=== PATIENT | female | born 1960 | race Caucasian/White ===

== ENCOUNTER → 2017-08-09 | Outpatient (CLI) | payer OTHER ==
--- NOTE | ~2017-08-09 | PFR/MVV ---
[facility] [place] [address] PULMONARY FUNCTION MVV/REPORT Name: JACERAUL Room #: REG SHEYLA Watt#: [id number] Admission: 08/09/17 Attend Phys: Lucio Caban MD Discharge: Date of : 64 Report #: [id number] THIS REPORT FOR: //name// COPIES FOR: AGE: 56 SEX/RACE: F/C >> SPIROMETRY: (BTPS) Height: 66.0 in cm Weight: 138 lbs kg Exam Date: 08/09/17 PRE-RX POST-RX PRED BEST %PRED BEST %PRED %CHG FVC LITERS . 3.35 . 2.83 . 84 . 2.73 . 82 . -3 FEV1 LITERS . 2.73 . 2.11 . 77 . 2.16 . 79 . 2 FEV1/FVC % . 83 . 75 . 90 . 79 . 95 . 6 DYR38-53% L/Sec . 2.97 . 1.58 . 53 . 2.17 . 73 . 38 PEF L/SEC . 6.13 . 6.31 . 103 . 6.47 . 106 . 3 FEF50/FIF50 UNITLESS . <1.00 . 0.80 . . 1.59 . . 99 MVV L/Min . 96 . 67 . 69 f 1/Min . . 130 . >> LUNG VOLUMES: (BTPS) PRE-RX POST-RX PRED AVG %PRED AVG %PRED %CHG VC Liters . 3.35 . 2.84 . 85 . . . TLC Liters . 5.34 . 4.89 . 91 . . . RV Liters . 1.95 . 2.05 . 105 . . . RV/TLC % . 36 . 42 . 116 . . . FRC PL Liters . 3.11 . 3.07 . 99 . . . FRC N2 Liters . 3.11 . . . . . ERV Liters . . 1.02 . . . . IC Liters . . 1.77 . . . . >> DIFFUSION: DLCO ml/Min/mmHg . 20.7 . 14.3 . 69 . . . DL Deidra ml/Min/mmHg . 20.7 . 14.3 . 69 . . . DLCO/VA ml/Min/mmHg . 3.89 . 4.37 . 112 . . . VA Liters . . 3.26 . . . . [facility] [address] [place] [address] PULMONARY FUNCTION MVV/REPORT Name: RAUL MCCORMICK Room #: [facility]#: [id number] Admission: 08/09/17 Attend Phys: Lucio Caban MD Discharge: Date of : 64 Report #: [id number] COMMENTS: COMMENTS: >> RESISTANCE: PRE-RX PRED AVG %PRED Raw Total cmH20/L/Sec . . 6.55 . Raw Insp cmH20/L/Sec . . 11.46 . Raw Exp cmH20/L/Sec . . 10.17 . Raw cmH20/L/Sec . 1.22 . 2.53 . 208 Gaw L/Sec/cmH20 . 0.745 . 0.396 . 53 sRaw cmH20 Sec . 3.78 . 6.35 . 168 sGaw l/cmH20 Sec . 0.265 . 0.158 . 60 Vtq Liters . . 2.51 . # = OUTSIDE 95% CONFIDENCE INTERVAL CALIBRATION: PRED: 3.00 ACTUAL: EXP 3.01 INSP 3.02 [facility]-06 [facility]-05 N-1804-4 >> INTERPRETATION/IMPRESSION: CC: [facility] physician/PCP Lucio Caban DATE OF SERVICE: 08/09/2017 STUDIES PERFORMED: Full pulmonary function study. NOTATION: Full pulmonary function study reveals normal spirometry. There is no significant change post-bronchodilator. Lung volumes are normal. DLCO is mildly reduced and is of unclear significance. <ELECTRONICALLY SIGNED> By: Delroy Kinsey MD 09/20/17 1204 Delroy Kinsey MD /nt
== END ==
LOC: PUL 09:25
DX: R06.00 Dyspnea, unspecified (principal)